=== PATIENT | female | born 1970 | race African-American/Black ===

== ENCOUNTER 2024-05-23 02:31 | Emergency (ER) | payer SELFPAY ==
[~2024-05-23] VITALS: Ht 172.7 cm; Wt 83.9 kg
[2024-05-23] MEDS: MAGNESIUM/ALUMINUM HYDROXIDE/SIMETHICONE 30ML UDC PO NR (04:57)
[2024-05-23] MEDS: ONDANSETRON 4MG ODT PO NR (04:57)
[2024-05-23] MEDS ORDERED: PROT20 MT (05:06)
[2024-05-23 05:26] VITALS: BP 145/66; PULSE 68; RESP 18; TEMP 36.66960; O2SAT 98
== END 2024-05-23 04:45 | disposition home or self-care (01) ==
LOC: ER 02:31
DX: K21.9 Gastro-esophageal reflux disease without esophagitis (principal); Z79.899 Other long term (current) drug therapy
CPT/HCPCS: 99283; Q0162